=== PATIENT | male | born 1970 | race Caucasian/White ===

== ENCOUNTER → 2016-10-18 | Outpatient (CLI) | payer OTHER ==
--- NOTE | 2016-10-18 13:01 | REP ---
LUMBAR SPINE COMPLETE: 10/18/2016. Clinical history: Back pain with lifting injury 3 days ago. Comparison: MRI lumbar spine 03/31/2007. Findings: Five views were provided. The pedicles, spinous and transverse processes were intact on the AP view. There is no scoliosis. Sacral ala and foramina along with the SI joints visualized were intact. The lower thoracic levels and visualized ribs unremarkable. There is some hypertrophic facet change at L4-5 and L5-S1. No spondylolysis or spondylolisthesis. There is actually better lordosis than on the MR of 9 years ago. There is slight disc space narrowing at L4-5. The other disc space heights and all the vertebral body heights intact. Small marginal osteophytes are seen at all levels. Impression: 1. Degenerative disc changes with slight narrowing at L5- S1 and small osteophytes at all levels. No compression deformity, spondylolysis, spondylolisthesis or other acute finding. Signed by Hong Daniel MD 10/18/2016 06:06 P
== END ==
LOC: M WUC 09:52
PROVIDERS: ATTEND Physician Assistant
DX: M54.5 Low back pain (principal)

== ENCOUNTER → 2017-10-22 | Outpatient (CLI) | payer OTHER | LOC: M RAD 06:43 | DX: R10.11 Right upper quadrant pain (principal) | CPT/HCPCS: 76705 ==

== ENCOUNTER → 2020-03-28 | Outpatient (CLI) | payer OTHER ==
--- NOTE | 2020-03-29 09:55 | REP ---
INDICATION: PAIN OF LEFT SHOULDER. COMPARISON: None. TECHNIQUE: Coronal oblique T1, T2 fat sat, sagittal oblique T2 fat sat, axial T2 fat sat, gradient echo. FINDINGS: Rotator cuff: No evidence of tear. Mild increased signal is seen in the supraspinatus tendon on T2 weighted images compatible with mild tendinopathy/tendinitis. Acromioclavicular joint: There are mild hypertrophic degenerative changes of the acromioclavicular joint. Acromion: Type 1 Biceps Tendon: In bicipital groove, there is mild fluid surrounding the biceps tendon. Hill Sach's deformity: None. Deltoid muscle: No abnormal signal. Biceps labral complex: There is tear of the biceps labral complex. Labrum: There is a diffuse SLAP tear. This appears to extend into the superior aspect of the posterior labrum. Cartilage: No defects. There is mild chondromalacia at the glenohumeral joint. Bone marrow: Mild marrow edema is seen along the acromioclavicular joint. There are mild subcortical cystic changes in the humeral head. Joint fluid: No effusion. IMPRESSION: Mild supraspinatus tendinopathy/tendinitis. No rotator cuff tendon tear. Mild hypertrophic degenerative changes of the acromioclavicular joint. Diffuse SLAP tear also involving the biceps labral complex. The SLAP tear appears to extend into the superior aspect of the posterior labrum. <Electronically signed by Dc Liang > 03/29/20 [id number]
== END ==
LOC: M RAD 15:56
PROVIDERS: ATTEND Nurse Practitioner Family
DX: R93.7 Abnormal findings on diagnostic imaging of other parts of musculoskeletal system (principal); M25.512 Pain in left shoulder